=== PATIENT | female | born 1985 | race Caucasian/White ===

== ENCOUNTER 2019-11-16 07:22 | Day surgery (SDC) | payer MEDICAID ==
[2019-11-16] MEDS ORDERED: Propofol 200 MG/20 ML SDV ONE ×4 (07:25→09:12)
[2019-11-16] MEDS ORDERED: fentaNYL 100 MCG/2 ML SDV ONE (07:25)
[2019-11-16] MEDS ORDERED: Midazolam 1 MG/ML 2 ML SDV ONE (07:25)
[2019-11-16] MEDS ORDERED: Sodium Chloride 0.9% 1,000 ML IV SCH (08:00)
[2019-11-16] MEDS ORDERED: Lidocaine 1% with EPINEPHrine 1:100,000 50 ML MDV ONE (08:29)
[2019-11-16] MEDS ORDERED: Lidocaine 2% Jelly 10 ML Urojet ONE (08:29)
[2019-11-16] MEDS ORDERED: Bupivacaine 0.5% 30 ML SDV ONE (08:29)
[2019-11-16] MEDS ORDERED: Lidocaine 1% 2 ML ONE (08:51)
[2019-11-16] MEDS ORDERED: ceFAZolin 2 GM in Premix Bag 1 BAG IV ONE (09:00)
[2019-11-16] MEDS ORDERED: metroNIDAZOLE/Normal Saline 500 MG in Premix Bag 1 BAG IV ONE (09:00)
[2019-11-16] MEDS ORDERED: fentaNYL 100 MCG/2 ML SDV IVPUSH ONE (09:32)
[2019-11-16] MEDS ORDERED: Acetaminophen/HYDROcodone 325-5 MG Tab PO PRN (10:30)
--- NOTE | 2019-11-16 11:47 | OR ---
DATE OF PROCEDURE: 11/16/2019 SURGEON: Elmer Sosa MD PROCEDURES: 1. Colonoscopy with internal hemorrhoid banding. 2. Excision external hemorrhoids. COMPLICATIONS: None. CREDIT OFFICER: None. ANESTHESIA: MAC. PREOPERATIVE DIAGNOSIS: Prominent hemorrhoids. POSTOPERATIVE DIAGNOSIS: Prominent hemorrhoids. RISKS: Risks, benefits, alternatives, and limitations including, but not limited to infection, bleeding, chronic wounds, chronic pain, fistula formation. I also discussed with the patient in the preoperative setting and in the clinic that it is not recommended to combine internal hemorrhoid with colonoscopy and external hemorrhoid, as this may lead to constipation and wound problems. However, the patient is adamant on this subject. PROCEDURE IN DETAIL: The patient was placed in left lateral decubitus position. Digital rectal exam was performed without abnormality. Scope was introduced and advanced atraumatically to the ileocecal valve. Scope was brought back through the remainder of the colon. No evidence of old or new blood. No masses. No polyps. No colitis. The prep was marginal with approximately 90% of the luminal surface that could be seen. On retroflexion, large prominent internal hemorrhoid was identified and subsequently banded x2. An external hemorrhoid excision was also performed during this procedure with the area prepped and draped and anesthetized with lidocaine. An elliptical incision was made and this was excised and closed with chromic suture in a running fashion. Dressings were applied. The patient tolerated the procedure well. Elmer Sosa MD /[id number]
--- NOTE | 2019-12-20 07:52 | OR ---
DATE OF PROCEDURE: SURGEON: Elmer Sosa MD ADDENDUM: PROCEDURE: Colonoscopy. PREPERATIVE DIAGNOSIS: Concern for gastrointestinal bleeding. POSTOPERATIVE DIAGNOSIS: Concern for gastrointestinal bleeding. Elmer Sosa MD /[id number]
== END 2019-11-16 11:40 | disposition home or self-care (01) ==
LOC: JP.SDS 07:22
PROVIDERS: ATTEND Surgery
DX: K64.8 Other hemorrhoids (principal); K64.4 Residual hemorrhoidal skin tags
CPT/HCPCS: 45398; 46999; 81025; A9270; J0690; J2001; J2250; J2704; J3010; J3490; J7030; 88304